=== PATIENT | female | born 1955 | race Caucasian/White ===

== ENCOUNTER 2017-02-23 07:28 | Day surgery (SDC) | payer OTHER ==
[~2017-02-23 07:28] MED LIST: ASPIRIN81 M1 PO; BIOTIN5000 MCG PO; GLUCOSAMINE CH1 EAC7 PO; LIPITOR40 M1 PO; LISINOPRIL20 M1 PO; METFORMIN HCL500 M5 PO; NORVASC5 M2 PO; PROTONIX40 M2 PO; TYLENOL EXTRA500 M1 PO
[2017-07-13] MEDS ORDERED: COZAAR50 M1 PO (09:40)
[2017-07-13] MEDS ORDERED: SYMBICORT 160-1 PUFF INH (09:41)
[2017-07-13] MEDS ORDERED: VENTOLIN HFA18 G2 PO (09:41)
== END 2017-02-23 13:09 ==
LOC: SHSB 07:28 → ORW 09:38 → SHSB 11:35
PROC: 0JH60XZ Insertion of Tunneled Vascular Access Device into Chest Subcutaneous Tissue and Fascia, Open Approach (ICD-10-PCS; principal; 2017-02-23)
PROC: 05H633Z Insertion of Infusion Device into Left Subclavian Vein, Percutaneous Approach (ICD-10-PCS; 2017-02-23)
PROC: B517YZA Fluoroscopy of Left Subclavian Vein using Other Contrast, Guidance (ICD-10-PCS; 2017-02-23)
DX: C85.90 Non-Hodgkin lymphoma, unspecified, unspecified site (principal); I10 Essential (primary) hypertension; E11.9 Type 2 diabetes mellitus without complications; Z88.6 Allergy status to analgesic agent; Z79.899 Other long term (current) drug therapy; Z87.442 Personal history of urinary calculi
CPT/HCPCS: C1788; J0690

== ENCOUNTER 2017-03-17 12:22 | Day surgery (SDC) | payer OTHER ==
[2017-03-17 13:43] LABS: BASO % 0.5 % (0-2); EOS % 0.4 % (0-7); HCT-HEMATOCRIT 39.4 % (34.0-49.0); HGB-HEMOGLOBIN 12.9 gm/dl (12.0-15.5); IMMATURE GRANULOCYTES ABSOLUTE 0.06 tho/cmm (0-0.03); IMMATURE GRANULOCYTES PERCENT 0.8 % (0-0.3); LYMPH % 31.6 % (20-45); LYMPH ABSOLUTE COUNT 2.5 tho/cmm (0.8-4.5); MCH (MEAN CORPUSCULAR HGB) 30.9 pg (28.0-32.0); MCHC MEAN CORPUSCULAR HGB CONC 32.7 % (32.0-36.0); MCV (MEAN CELL VOLUME) 94.3 fl (82.0-96.0); MEAN PLATELET VOLUME 10.7 cmc (9.4-12.4); MONO % 9.1 % (0-12); MONOCYTE ABSOLUTE COUNT 0.7 tho/cmm (0.0-1.2); NEUTROPHIL ABSOLUTE COUNT 4.5 tho/cmm (1.6-8.0); NEUTROPHIL-AUTOMATED 4.5 tho/cmm (1.6-8.0); NEUTROPHILS % 57.6 % (40-80); PLATELET COUNT 281 tho/cmm (150-450); RED BLOOD COUNT 4.18 mil/cmm (4.00-5.20); WHITE BLOOD COUNT 7.8 tho/cmm (4.0-10.0)
[2017-03-17 13:49] LABS: INR 0.9 INR (0.9-1.1); PROTHROMBIN TIME 10.3 SECONDS (9.0-13.6)
[2017-03-17 13:56] LABS: ANION GAP 14 mmol/L (0-20); BLOOD UREA NITROGEN 15 mg/dl (6-24); CALCIUM 8.9 mg/dl (8.5-10.5); CARBON DIOXIDE-VENOUS 25 mmol/L (22-32); CHLORIDE 109 mmol/l (96-110); CREATININE 0.71 mg/dl (0.50-1.10); GLUCOSE 83 mg/dL (70-110); POTASSIUM 4.1 mmol/L (3.7-5.1); SODIUM 144 mmol/L (135-145); eGFR VALUE FOR BLACK >90 mL/Min
[2017-07-13] MEDS ORDERED: COZAAR50 M1 PO (09:40)
[2017-07-13] MEDS ORDERED: VENTOLIN HFA18 G2 PO (09:41)
[2017-07-13] MEDS ORDERED: SYMBICORT 160-1 PUFF INH (09:41)
== END 2017-03-17 19:20 ==
LOC: SHSB 12:22
PROVIDERS: Internal Medicine Hematology & Oncology
PROC: 0JPTXXZ Removal of Tunneled Vascular Access Device from Trunk Subcutaneous Tissue and Fascia, External Approach (ICD-10-PCS; principal; 2017-03-17)
PROC: 0JH60XZ Insertion of Tunneled Vascular Access Device into Chest Subcutaneous Tissue and Fascia, Open Approach (ICD-10-PCS; 2017-03-17)
PROC: 05PYX3Z Removal of Infusion Device from Upper Vein, External Approach (ICD-10-PCS; 2017-03-17)
PROC: 05HM33Z Insertion of Infusion Device into Right Internal Jugular Vein, Percutaneous Approach (ICD-10-PCS; 2017-03-17)
PROC: B543ZZA Ultrasonography of Right Jugular Veins, Guidance (ICD-10-PCS; 2017-03-17)
DX: T82.528A Displacement of other cardiac and vascular devices and implants, initial encounter (principal); C83.31 Diffuse large B-cell lymphoma, lymph nodes of head, face, and neck; E78.5 Hyperlipidemia, unspecified; K21.9 Gastro-esophageal reflux disease without esophagitis; R63.4 Abnormal weight loss; Z68.29 Body mass index [BMI] 29.0-29.9, adult; Z79.84 Long term (current) use of oral hypoglycemic drugs; Z79.899 Other long term (current) drug therapy; Z88.5 Allergy status to narcotic agent; Z87.442 Personal history of urinary calculi; Z98.890 Other specified postprocedural states
CPT/HCPCS: C1773; C1788; J0690; J2250; J3010; J7030